=== PATIENT | female | born 1980 | race Caucasian/White ===

== ENCOUNTER 2021-09-09 01:01 | Day surgery (SDC) | payer OTHER, SELFPAY ==
[2021-09-04 13:48] VITALS: BMI 22.6
--- NOTE | 2021-09-04 13:59 | PC.NURSE ---
Report to the Outpatient Waiting Room, entrance under the green pavilion located off [facility], at time _1115 on date __09/09/21 . OR Time: ___1315 . - You and your visitor will be asked a series of questions to screen for COVID 19 for your protection. - Only one visitor is allowed at this time. - The patient visitor is requested to leave or wait in car when not with patient. - A mask is required within the hospital. Patients may have clear liquids (water, carbonated beverages, clear teas, apple juice) until 3 hours prior to surgery (1015 AM) with a maximum of 20 ounces. - No food from midnight until time of surgery - Infants may have breast milk until 4 hours before surgery, infant formula 6 hours prior to surgery. - Children will be allowed to drink immediately following surgery. If applicable, please bring a bottle or sippy cup to assist with drinking. Juice, water, soda, and popsicles are readily available. For infants on formula, please bring formula the day of surgery. Pacifiers are allowed. Take the following medications with a SIP of water the morning of surgery: N/A Medications to discontinue per physician Date to take last dose Please no make-up, nail yemeni, hairspray, perfume, deodorant, or body powder the day of surgery. No jewelry (including any body piercings) or valuables the day of surgery, leave them at home. Please take a shower or bath the night before, or the morning of, surgery with an antibacterial soap. Wear comfortable, loose fitting clothing. Children are encouraged to wear pajamas. - Jewelry must be removed prior to entering the operating room. Rings and piercings that are not removed may be cut off. - The hospital will not accept responsibility for valuables. - Please leave all valuables, including medications, at home the day of surgery. If you are going home after surgery, a licensed auto transport driver must drive you home. - NO public transportation without another adult. - We recommend that an adult stay with you for 24 hours following discharge. - We also recommend that you do not drive, make important decision, drink alcoholic beverages, or take any drugs that were not prescribed by your health care provider for at least 24 hours after your discharge time. For Pediatric surgeries, we recommend two adults accompany the child home (only one inside the building at this time). Follow any additional instructions given to you from your surgeon. If you or anyone in your household have experienced Covid symptoms in the past week, please notify your surgeon or the nurse liaison at the phone number below for possible testing. Telephone instructions given to __PT and asked if any additional questions and then verbalized understanding. Patient advised to call surgeon office or pre surgery nurse liaison [phone] if any additional questions.
--- NOTE | 2021-09-09 09:24 | P.PNAN_ITS ---
Anes - Initial Pre Proc Eval Procedure: Operation Date: 09/09/21 11:30 Proposed Procedures p Excision Right Breast Cyst - Bubba Godwin DO Date/Time: 09/09/21 09:24 Surgeon: Bubba Godwin DO Pre Op Diagnosis: l cm Rt Breast Cyst Patient Data Age: 41 Gender: F Height: 1.75 m Weight: 69.54 kg Allergies Allergy/AdvReac Type Severity Reaction Status Date / Time No Known Allergies Allergy Verified 09/09/21 09:49 Home Medications Medication Instructions Recorded Confirmed Type No Home Medications 06/20/21 09/09/21 History Patient hx anesthesia problems: none Family hx anesthesia problems: none Results Review: All pre-operative results and documents have been reviewed as part of the pre- operative evaluation. [facility] Past Medical History Medical History Anxiety Depression High blood pressure High cholesterol Screening mammogram, encounter for Surgical History Surgical History History of ankle surgery History of salpingectomy Bilateral Salpingectomy with removal of external condyloma: Undesired fertility, Multiple Family History Family History Mother Diabetes mellitus Mother Hypertension Social History Social History Smoking packs per day: 1 Smoking cigarettes per day: 20.0 Years smoked: 20 Smoking pack-years: 20.00 Smoking status: Current every day smoker Tobacco type: cigarettes Second hand tobacco smoke exposure: Yes Alcohol intake: current Alcohol use details: STATES MAYBE 4-6 DRINKS/YEAR Substance use: never Substance use type: does not use Living arrangements: with family Additional living arrangements comments: LIVES [facility] 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 Gender identity (if verbalized by the patient): Female Sexual Orientation (if Verbalized by the Patient): Straight or Heterosexual Spiritual care concerns: No Anes - Eval Final PreProcedure Day of Procedure 09/09/21 09:24 Patient weight: normal Heart: regular rate and rhythm Lungs: clear to auscultation Airway: Mallampati scale class II Neurological: alert and oriented Last oral intake: >/= 8 hours ASA classification: III Emergent: no Anesthetic plan: proceed Anesthesia type and monitoring: general GIVS Results Review: All pre-operative results and documents have been reviewed as part of the pre- operative evaluation. Informed Consent: The patient's anesthetic plan and its attendant risks and benefits were discussed with the patient/family/POA. Questions were solicited and answers provided to the satisfaction of the patient/family/POA.
[2021-09-09] MEDS: ACETAMINOPHEN 500 MG TABLET 1000 MG PO (10:13)
[2021-09-09] MEDS: LACTATED RINGERS 1,000 ML 30 ML IV CONT (10:13)
[2021-09-09] MEDS: KETOROLAC 15 MG/ML VIAL (*BKC) IV PUSH (10:15)
[2021-09-09 10:17] VITALS: BP 109/73; PULSE 67; RESP 16; TEMP 36.3; O2SAT 100
--- NOTE | 2021-09-09 12:40 | WPDHPUPDATE1 ---
History and Physical Update Update Date/Time: 09/09/21 12:40 History and Physical has been reviewed, including an updated exam of the patient. There are NO changes in the patient's condition. Risks, benefits, and alternatives have been discussed and questions answered. Patient agrees to proceed with procedure.
[2021-09-09] MEDS: ceFAZolin 2 GM/D5W 50 ML 2 GM/50 ML BAG IVPB (13:10)
[2021-09-09] MEDS: LIDO 1%/EPINEPHRINE/PF 1:200,000 30 ML VIAL XX (13:29)
--- NOTE | 2021-09-09 13:42 | W.PM.PROC2 ---
Procedure Note - Detailed Date of Procedure 09/09/21 Pre-op Diagnosis 1 cm Rt Breast Cyst Post-op Diagnosis Same Procedure Performed 1. Excision of 1 cm right breast cyst 2. Layered closure Surgeon Bubba Godwin, DO Anesthesia MAC and Local (1% lidocaine with epinephrine) Indications This is a 41-year-old woman who presented with recurrent swelling and drainage at an area on her breast. This was a previous abscess that was drained and has what appears to be a residual cyst. This is right on the edge of the nipple areola complex of the right breast in the upper inner quadrant. Discussions were made with the patient about treatment options and decision was made to proceed with excision of the 1 cm right breast cyst. Findings Excision of 1 cm right breast cyst was performed. This appeared likely to be a subcutaneous inclusion cyst at the edge of the nipple areola complex in the upper outer quadrant of the right breast. An elliptical incision was made around the cyst to completely excise it. This was sent to the lab for pathology. A layered closure was then performed using 3-0 Vicryl deep dermal sutures followed by 4-0 Monocryl running subcuticular suture. Description of Procedure Procedure as well as risks, benefits, and alternatives were discussed with the patient. Written consent was obtained and placed in chart prior to procedure. Patient was brought back to surgical suite. She was placed supine on operating table. Time-out was done to confirm patient and procedure. IV sedation was then administered by the anesthesia department. Her right breast area was prepped and draped in sterile fashion using chlorhexidine prep. 1% lidocaine with epinephrine was infiltrated locally around the breast cyst. An elliptical incision was made around the cyst using a 15 blade scalpel. The cyst was sharply excised from the subcutaneous space using sharp dissection with the 15 blade. The cyst was completely excised and sent to the lab for pathology. Electrocautery was then used for hemostasis. No other abnormalities were noted. The deep dermis was reapproximated using 3-0 Vicryl inverted interrupted sutures. The skin was approximated using 4-0 Monocryl running subcuticular suture. Exofin glue was then applied on top. The patient was then awakened from anesthesia and transferred to recovery. Estimated Blood Loss 5 Pathology Yes (1 cm right breast cyst) Complications No immediate complications Condition Stable Disposition Same day [facility] Billing Surgery - Charge Forward: Surgery Billing
[2021-09-09 13:43] VITALS: BP 96/56; PULSE 70; RESP 16; O2SAT 97
[2021-09-09 14:13] VITALS: BP 115/65; PULSE 61; RESP 18; O2SAT 97
[2021-09-09 14:38] VITALS: BP 115/71; PULSE 60; RESP 16; O2SAT 97
== END 2021-09-09 14:49 | disposition home or self-care (01) ==
PROVIDERS: Visit Provider Surgery
PROC: (CPT 11401; principal; 2021-09-09 11:30)
DX: L72.0 Epidermal cyst (principal); F17.210 Nicotine dependence, cigarettes, uncomplicated
CPT/HCPCS: 11401; 12031; 88305; A9270; J0690; J1885; J2250; J2704; J3010; J7120

== ENCOUNTER 2023-08-28 09:26 | Outpatient (CLI) | payer OTHER, SELFPAY ==
[2023-08-28 09:53] LABS: Hematocrit 42.9 % (37.0-47.0); Hemoglobin 13.9 g/dL (12.0-15.0); Mean Corpuscular HGB Conc 32.4 g/dl (32-36); Mean Corpuscular Hemoglobin 29.7 pg (26-34); Mean Corpuscular Volume 91.7 fl (80-100); Mean Platelet Volume 9.9 fl (7.4-10.4); Platelet Count Result 289 k/mm3 (150-375); Red Blood Count 4.68 M/mm3 (4.2-5.4); Red Cell Distribution Width 14.3 % (11.5-14.5); White Blood Count 11.8 K/mm3 (4.5-10.0)
== END 2023-08-28 09:27 | disposition home or self-care (01) ==
PROVIDERS: Referring Provider Obstetrics & Gynecology; Visit Provider Anesthesiology
DX: N81.4 Uterovaginal prolapse, unspecified (principal); Z01.818 Encounter for other preprocedural examination
CPT/HCPCS: 36415; 85027; 86850; 86900; 86901

== ENCOUNTER 2023-09-02 00:55 | Day surgery (SDC) | payer OTHER, SELFPAY ==
[2023-08-26 15:46] VITALS: BMI 26.6
--- NOTE | 2023-08-26 15:47 | PC.NURSE ---
Report to the Outpatient Waiting Room, entrance under the green pavilion located off [facility], at time _0600_ on date _[id number]_. Planned Procedure Time: _0730_. Time changes happen often and if your time is changed the preop area will call you the afternoon before. - You and your visitor will be asked to self-screen and do not enter if you have any COVID symptoms. - A mask is optional within the hospital at this time. Patients may have clear liquids (water, carbonated beverages, clear teas, apple juice) until 3 hours prior to surgery with a maximum of 20 ounces. - No food from midnight until time of surgery Take the following medications with a SIP of water the morning of surgery: ___None DO NOT STOP ANY OF YOUR OTHER PRESCRIPTION MEDICATIONS PRIOR TO SURGERY ?EXCEPT THE FOLLOWING Medications to discontinue per physician None Date to take last dose Please no make-up, nail kazakh, hairspray, perfume, deodorant, or body powder the day of surgery. No jewelry (including any body piercings) or valuables the day of surgery, leave them at home. Please take a shower or bath the night before, or the morning of, surgery with an antibacterial soap. Wear comfortable, loose fitting clothing. - Jewelry must be removed prior to entering the operating room. Rings and piercings that are not removed may be cut off. - The hospital will not accept responsibility for valuables. - Please leave all valuables, including medications, at home the day of surgery. If you are going home after surgery, a licensed dumpcart driver must drive you home. - NO public transportation without another adult if you receive anesthesia. - We recommend that an adult stay with you for 24 hours following discharge. - We also recommend that you do not drive, make important decision, drink alcoholic beverages, or take any drugs that were not prescribed by your health care provider for at least 24 hours after your discharge time. Follow any additional instructions given to you from your surgeon. If you or anyone in your household have experienced Covid symptoms in the past week, please notify your surgeon or the nurse liaison at the phone number below for possible testing. Telephone instructions given to __Ian_and asked if any additional questions and then verbalized understanding. Patient advised to call surgeon office or pre surgery nurse liaison [phone] if any additional questions.
[2023-09-02] VITALS (11 sets, daily range): BP systolic 98–138; BP diastolic 57–82; PULSE 68–83; RESP 14–24; TEMP 36.1–36.9; O2SAT 92–100
[2023-09-02] MEDS: KETOROLAC 15 MG/ML VIAL (*BKC) IV PUSH (07:00)
[2023-09-02] MEDS: LACTATED RINGERS 1,000 ML 30 ML IV CONT ×2 (07:00→09:15)
[2023-09-02] MEDS: ACETAMINOPHEN 500 MG TABLET 1000 MG PO (07:00)
--- NOTE | 2023-09-02 07:03 | WPDANESEPPF ---
Anes - Initial Pre Proc Eval Procedure: Operation Date: 09/02/23 07:30 Proposed Procedures p Robotic Assisted Total Laparoscopic Hysterectomy - Christian Kelley MD Date/Time: 09/02/23 07:03 Surgeon: Christian Kelley MD Pre Op Diagnosis: uterine hypertrophy Patient Data Age: 43 Gender: F Height: 1.75 m Weight: 81.8 kg Allergies Allergy/AdvReac Type Severity Reaction Status Date / Time No Known Allergies Allergy Verified 08/26/23 15:40 Home Medications Medication Instructions Recorded Confirmed Type No Home Medications 10/17/21 08/26/23 History Patient hx anesthesia problems: none Family hx anesthesia problems: none Results Review: All pre-operative results and documents have been reviewed as part of the pre-operative evaluation. [facility] Past Medical History Medical History Abnormal Pap smear of cervix 07-08-2020 Ascus hpv neg per [facility] rpt pap in 1 year at [facility] Anxiety Depression High blood pressure High cholesterol Screening mammogram, encounter for Surgical History Surgical History H/O excision of epidermal inclusion cyst excision of 1cm right breast cyst mass 09/09/21. History of ankle surgery (~2015) History of salpingectomy (07/25/20) Bilateral Salpingectomy with removal of external condyloma: Undesired fertility, Multiple Family History Family History Mother Diabetes mellitus Hypertension Grandparent Hypertension maternal grandmother Social History Social History Smoking packs per day: 1 Smoking cigarettes per day: 20.0 Years smoked: 28 Smoking pack-years: 28.00 Smoking status: Current every day smoker Tobacco type: cigarettes Second hand tobacco smoke exposure: Yes Alcohol intake: current Alcohol use details: STATES MAYBE 4-6 DRINKS/YEAR Substance use: never Substance use type: does not use Lack of Transportation: No Lack of Food: Never True Current Housing: I Have Housing Concerned About Future Housing: No Difficulty Paying Gas/Electric Bills: No Difficulty Paying for Meds: No Currently Unemployed: No Education: High School Diploma/GED Difficulty w/ Childcare or Family Care: No Living arrangements: with family Additional living arrangements comments: LIVES [facility] [place] 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 ) Neurological: alert and oriented Last oral intake: >/= 8 hours ASA classification: II Emergent: no Anesthetic plan: proceed Anesthesia type and monitoring: general and standard monitoring Results Review: All pre-operative results and documents have been reviewed as part of the pre-operative evaluation. Smoker, 1 ppd, smoked at 530-6 am. Informed Consent: The patient's anesthetic plan and its attendant risks and benefits were discussed with the patient/family/POA. Questions were solicited and answers provided to the satisfaction of the patient/family/POA.
--- NOTE | 2023-09-02 07:05 | WPDHPUPDATE1 ---
History and Physical Update Update Date/Time: 09/02/23 07:05 Proceed with: 1. robotic total hysterectomy with bilateral salpingectomy History and Physical has been reviewed, including an updated exam of the patient. There are NO changes in the patient's condition. Risks, benefits, and alternatives have been discussed and questions answered. Patient agrees to proceed with procedure.
[2023-09-02] MEDS: ceFAZolin 2 GM/D5W 50 ML 2 GM/50 ML BAG IVPB (07:31)
[2023-09-02] MEDS: fentaNYL CITRATE INJ (*CRX) 100 MCG/2 ML VIAL 25 MCG IV PUSH ×4 (09:27→10:00)
--- NOTE | 2023-09-02 09:27 | W.PM.PROC2 ---
Procedure Note - Detailed Date of Procedure 09/02/23 Pre-op Diagnosis 1. Uterine prolapse 2. Fibroid uterus Post-op Diagnosis Same Procedure Performed Robotic assisted total hysterectomy with ovarian preservation (no salpingectomy as tubes previously removed) Surgeon Christian Kelley MD Anesthesia General Findings Enlarged globular uterus with fibroid which prolapses to the introitus Description of Procedure Patient prepped and draped usual manner for this procedure. Cervical instruments were placed for uterine mobility throughout the case. Abdominal trocar sites were marked and trocars were placed under direct visualization. The [employer] system was then attached to the trocars and instruments were placed under direct visualization. Surgeon then moved to the console. Inspection of the pelvis revealed enlarged fibroid uterus with normal ovaries, tubes have been removed previously. Utero-ovarian ligaments were cauterized and cut round ligament was cauterized and cut and anterior posterior leaf the broad ligament was dissected anteriorly the bladder flap was developed without difficulty and posterior leaf was also dissected to skeletonize the uterine vessels. A the vessels then cauterized and cut bilaterally and anterior colpotomy incision was made. This was carried circumferentially to separate the cervix from the vaginal cuff and the so uterus was then delivered into the vagina. Cuff was closed using V lock suture from the right angle to the midline, then from the left angle to the midline. Irrigation was undertaken, there was no bleeding. Aurora arm was placed empirically over the incision sites and at this point the suture was considered terminated. Gas was allowed to escape incisions approximated using 4-0 Monocryl and the patient was sent to recovery room in stable condition. Estimated Blood Loss 100 Drains No Packing No Pathology Yes Complications No immediate complications Condition Stable Disposition PACU [facility] Billing Surgery - Charge Forward: Surgery Billing
[2023-09-02] MEDS: HYDROcodone/acetaminophen (*CRX) 5-325 MG TABLET 1 TAB PO ×3 (10:34→21:30)
[2023-09-02] MEDS: DEXTROSE 5%/0.45% SOD CHL 1,000 ML 125 ML IV CONT (10:35)
[2023-09-02] MEDS: ONDANSETRON INJ 4 MG/2 ML VIAL IV PUSH (10:47)
[2023-09-02] MEDS: KETOROLAC 30 MG/ML VIAL (*BKC) IV PUSH ×2 (13:33→21:30)
[2023-09-02] MEDS: SIMETHICONE 80 MG TAB.CHEW PO (13:34)
[2023-09-02] MEDS: DOCUSATE SODIUM 100 MG CAPSULE PO (21:30)
[2023-09-03 03:40] VITALS: BP 110/61; PULSE 73; RESP 20; TEMP 36.6; O2SAT 95
[2023-09-03] MEDS: IBUPROFEN 600 MG TABLET PO (03:50)
[2023-09-03] MEDS: HYDROcodone/acetaminophen (*CRX) 5-325 MG TABLET 1 TAB PO (05:00)
[2023-09-03 05:02] LABS: Basophils Percent Auto 0.1 % (0.2-1.2); Eosinophils Percent Auto 0.1 % (0-4.4); Hematocrit 37.7 % (37.0-47.0); Immature Granulocyte Percent A 0.5 % (0-0.5); Immature Platelet Fraction Pct 4.9 % (0.9-11.2); Lymphocytes Absolute Auto 3.85 K/mm3 (0.9-3.2); Lymphocytes Percent Auto 20.6 % (18.3-44.2); Mean Corpuscular HGB Conc 31.8 g/dl (32-36); Mean Corpuscular Hemoglobin 29.3 pg (26-34); Mean Platelet Volume 10.2 fl (7.4-10.4); Monocytes Absolute Auto 1.2 K/mm3 (0.1-0.6); Monocytes Percent Auto 6.4 % (2.6-8.5); Neutrophils Absolute Auto 13.5 K/mm3 (1.3-6.7); Neutrophils Percent Auto 72.3 % (45.5-73.1); Platelet Count Result 235 k/mm3 (150-375); Red Cell Distribution Width 13.8 % (11.5-14.5); White Blood Count 18.7 K/mm3 (4.5-10.0)
--- NOTE | 2023-09-03 08:10 | P.PNAN_ITS ---
Anes - Prog Note Post-Op Date/Time: 09/03/23 08:10 Cardiovascular status: normal Respiratory status: normal Airway patency: baseline Mental status: baseline Post-Op hydration status: normal Vital Signs: Last Vital Signs Temp 36.6 C 09/03/23 03:40 Pulse 73 09/03/23 03:40 Resp 20 09/03/23 03:40 BP 110/61 09/03/23 03:40 Pulse Ox 95 09/03/23 03:40 O2 Del Method Room Air 09/02/23 16:44 O2 Flow Rate 2 09/02/23 10:41 Pain Score (VAS): 0 I/O: Intake & Output 09/02/23 09/03/23 09/03/23 23:59 07:59 15:59 Intake Total 240 Balance 240 Laboratory Tests 09/03/23 03:48 09/03/23 03:48 WBC 18.7 H RBC 4.10 L Hgb 12.0 Hct 37.7 MCV 92.0 MCH 29.3 MCHC 31.8 L RDW 13.8 Plt Count 235 MPV 10.2 Immature Gran % (Auto) 0.5 Neut % (Auto) 72.3 Lymph % (Auto) 20.6 [place] % (Auto) 6.4 Eos % (Auto) 0.1 Baso % (Auto) 0.1 L Lymph # (Auto) 3.85 H [place] # (Auto) 1.2 H Eos # (Auto) 0.0 Baso # (Auto) 0.0 Abs Immat Gran (auto) 0.10 H Absolute Neuts (auto) 13.5 H Absolute Nucleated RBC 0.000 Nucleated RBC % 0.0 % Immature Plt Fraction 4.9 Patient Feedback: Patient satisfied with anesthetic care.
[2023-09-03 08:15] VITALS: BP 123/63; PULSE 60; RESP 18; TEMP 36.8; O2SAT 100
[2023-09-03] MEDS: SIMETHICONE 80 MG TAB.CHEW PO (08:30)
[2023-09-03] MEDS: DOCUSATE SODIUM 100 MG CAPSULE PO (08:30)
== END 2023-09-03 08:36 | disposition home or self-care (01) ==
LOC: ANHSURGERY 06:10 → ANHOB2 10:22
PROVIDERS: Visit Provider Obstetrics & Gynecology
PROC: (CPT 58570; principal; 2023-09-02 07:30)
DX: N81.4 Uterovaginal prolapse, unspecified (principal); D25.9 Leiomyoma of uterus, unspecified; F17.210 Nicotine dependence, cigarettes, uncomplicated
CPT/HCPCS: 58570; S2900; 36415; 85025; 85055; 88307; 99199; A9270; J0690; J1100; J1170; J1885; J2250; J2405; J2704; J3010; J7030; J7120; Q9968